=== PATIENT | male | born 1975 | race Caucasian/White ===

== ENCOUNTER 2021-04-26 09:39 | Emergency (ER) | payer OTHER ==
[~2021-04-26] VITALS: Ht 175.3 cm; Wt 117.9 kg
[2021-04-26] MEDS ORDERED: CARVEDILOL12.5 MG PO (09:59)
[2021-04-26] MEDS ORDERED: ADDERALL XR 2525 MG PO (10:00)
[2021-04-26] MEDS ORDERED: METFORMIN HCL500 MG PO (10:00)
[2021-04-26] MEDS ORDERED: LODINE400 MG PO (10:00)
[2021-04-26] MEDS ORDERED: NORVASC5 MG PO (10:00)
[2021-04-26 11:07] LABS: ALBUMIN 3.2 g/dL (3.4-5.0); BILIRUBIN - TOTAL 0.5 mg/dL (0.2-1.0); BUN/CREAT RATIO (CALC) 15.6 RATIO; CREATININE 0.77 mg/dL (0.67-1.17); GLOBULIN (CALCULATION) 3.9 g/dL; POTASSIUM 3.8 mmol/L (3.5-5.1); TOTAL PROTEIN 7.1 g/dL (6.4-8.2)
[2021-04-26] MEDS ORDERED: NAPROXEN500 MG PO (11:35)
[2021-04-26] MEDS ORDERED: CEPHALEXIN500 MG PO (11:35)
[2021-04-26 11:45] LABS: BASOPHIL 0.6 % (0-2); EOSINOPHIL 2.7 % (0-5); HCT 47.2 % (42.0-52.0); HGB 15.8 g/dl (13.2-18.0); LYMPHOCYTE 18.4 % (15-48); MCH 32.1 pg (25.0-31.0); MCHC 33.5 g/dL (32.0-36.0); MCV 95.9 fL (78.0-100.0); MONOCYTE 8.8 % (0-12); MPV 10.8 fL (6.0-9.5); NEUTROPHIL 69.1 % (41-80); NRBC 0; PLT 213 K/uL (150-400); RBC 4.92 M/uL (4.70-6.00); RDW 13.2 % (11.5-14.0); WBC 5.1 K/uL (4.0-10.5)
== END 2021-04-26 11:50 | disposition home or self-care (01) ==
LOC: FER 09:39
PROVIDERS: Internal Medicine
DX: M79.651 Pain in right thigh (principal); E11.65 Type 2 diabetes mellitus with hyperglycemia; I10 Essential (primary) hypertension; Z88.8 Allergy status to other drugs, medicaments and biological substances; Z79.84 Long term (current) use of oral hypoglycemic drugs; Z79.899 Other long term (current) drug therapy
CPT/HCPCS: 36415; 80053; 85025; 93971